=== PATIENT | female | born 1990 | race Caucasian/White ===

== ENCOUNTER → 2016-09-01 | Outpatient (CLI) | payer BC ==
[2016-09-01 08:35] LABS: BUN/CREATININE RATIO 17 (0-10)
== END ==
LOC: LAB 07:32
PROVIDERS: Internal Medicine Cardiovascular Disease
DX: R00.2 Palpitations (principal); I49.3 Ventricular premature depolarization; R06.02 Shortness of breath; R07.9 Chest pain, unspecified
CPT/HCPCS: 36415; 80048; 80061; 80076; 83735; 84439; 84443; 84481

== ENCOUNTER → 2017-03-17 | Outpatient (CLI) | payer BC | LOC: US 13:55 | DX: N63 Unspecified lump in breast (principal); N64.4 Mastodynia | CPT/HCPCS: 76641-RT ==

== ENCOUNTER 2021-02-22 13:05 | Emergency (ER) | payer BC ==
[~2021-02-22] VITALS: Ht 157.5 cm; Wt 85.7 kg
== END 2021-02-22 17:14 | disposition home or self-care (01) ==
LOC: ER1 13:05
DX: Z23 Encounter for immunization (principal); U07.1 COVID-19; J12.82 Pneumonia due to coronavirus disease 2019; E03.9 Hypothyroidism, unspecified; F17.290 Nicotine dependence, other tobacco product, uncomplicated
CPT/HCPCS: 71045; 87081; 87880; 99283; M0243; U0002

== ENCOUNTER → 2021-06-24 | Outpatient (CLI) | payer OTHER, BC | LOC: EROP 20:37 | DX: Z20.822 Contact with and (suspected) exposure to COVID-19 (principal) | CPT/HCPCS: U0002 ==